=== PATIENT | female | born 1970 | race African-American/Black ===

== ENCOUNTER 2020-07-18 05:30 | Day surgery (SDC) | payer OTHER, SELFPAY ==
[2020-07-17 14:51] LABS: BASOPHILS # (AUTO) 0.1 K/uL (0.0-0.2); BASOPHILS % (AUTO) 0.9 % (0.0-2.0); EOSINOPHILS # (AUTO) 0.2 K/uL (0.0-0.4); EOSINOPHILS % (AUTO) 2.9 % (0.0-4.0); HEMATOCRIT 41.8 % (36-48); HEMOGLOBIN 13.9 g/dL (12.0-16.0); LYMPHOCYTES # (AUTO) 2.4 K/uL (1.0-5.5); LYMPHOCYTES % (AUTO) 38.6 % (20.5-51.5); MEAN CORPUSCULAR HEMOGLOBIN 26 pg (27-31); MEAN CORPUSCULAR HGB CONC 33 % (32-36); MEAN CORPUSCULAR VOLUME 78 fL (79.0-98.0); MONOCYTES # (AUTO) 0.5 K/uL (0.0-1.0); MONOCYTES % (AUTO) 7.6 % (1.7-9.3); NEUTROPHILS # (AUTO) 3.1 K/uL (1.8-7.7); PLATELET COUNT (AUTO) 293 K/uL (130-430); RED BLOOD CELL COUNT(AUTO) 5.38 MIL/uL (4.2-6.2); WHITE BLOOD COUNT (AUTO) 6.2 K/uL (4.8-10.8)
[2020-07-17 15:26] LABS: CALCIUM 9.3 mg/dL (8.4-11.0); CREATININE 0.92 mg/dL (0.55-1.30); POTASSIUM 3.6 mmol/L (3.5-5.1)
[2020-07-17 15:37] LABS: PROTHROMBIN TIME 9.9 SECS (9.5-12.5)
[~2020-07-18] VITALS: Ht 157.5 cm; Wt 86.2 kg
[2020-07-18] MEDS ORDERED: SEVOFLURANE 15 MIN GAS INH ONE (06:15)
[2020-07-18] MEDS ORDERED: MEPERIDINE HCL/PF 100 MG/ML VIAL IM ONE (06:15)
[2020-07-18] MEDS ORDERED: KETOROLAC TROMETHAMINE 30 MG VIAL IVP ONE (06:15)
[2020-07-18] MEDS ORDERED: PROPOFOL 200MG/ 20ML VIAL (DIPRIVAN) IV ONE (06:15)
[2020-07-18] MEDS ORDERED: ROPIVACAINE 40 MG/20 ML AMP EP ONE (06:15)
[2020-07-18] MEDS ORDERED: NS 1000 ML IV.SOLN IV ONE (06:15)
[2020-07-18] MEDS ORDERED: EPINEPHrine 1 MG/ML AMP IM ONE (06:15)
[2020-07-18] MEDS ORDERED: DEXAMETHASONE SOD PHOSPHATE 4 MG/ML VIAL IVP ONE (06:15)
[2020-07-18] MEDS ORDERED: NS IRRIG SOLN 1000 ML IR ONE (06:15)
[2020-07-18] MEDS ORDERED: CEFAZOLIN 2 GM IVPB PREMIX 50 ML IV ONE (06:39)
[2020-07-18] MEDS ORDERED: ONDANSETRON HCL 4 MG/2 ML VIAL IVP PRN (07:15)
[2020-07-18] MEDS ORDERED: METOCLOPRAMIDE HCL 10 MG/2 ML VIAL IVP PRN (07:15)
[2020-07-18] MEDS ORDERED: HYDROmorphone 1 INJ. 1 MG/ML CARTRIDGE IVP PRN ×2 (07:15)
[2020-07-18] MEDS ORDERED: LR 1,000 ML IV SCH (07:15)
[2020-07-18] MEDS: MEPERIDINE HCL/PF 25 MG/ML DISP.SYRIN IVP PRN ×2 (08:05→08:25)
[2020-07-18] MEDS ORDERED: MEPERIDINE HCL/PF 25 MG/ML DISP.SYRIN ONE ×2 (08:06→08:30)
[2020-07-18 12:34] VITALS: BP_SYST 143
[2020-07-18] MEDS ORDERED: BUPIVACAINE LIPOSOME/PF 266 MG/20 ML VIAL INFIL ONE (18:17)
== END 2020-07-18 09:50 | disposition home or self-care (01) ==
LOC: SDS 05:30 → SMU 05:30 → SDS 09:50
PROVIDERS: ATTEND Orthopaedic Surgery Sports Medicine
DX: M22.41 Chondromalacia patellae, right knee (principal); M22.2X1 Patellofemoral disorders, right knee; I10 Essential (primary) hypertension; J45.909 Unspecified asthma, uncomplicated; E66.9 Obesity, unspecified; Z79.01 Long term (current) use of anticoagulants
CPT/HCPCS: 29877; 36415; 71046; 80048; 85025; 85610; 85730; 87426; 93005; J0171; J0690; J1100; J1885; J2175 ×2; J2704; J2795; J7030; J7120; C9290